=== PATIENT | male | born 1980 | race Caucasian/White ===

== ENCOUNTER 2023-10-09 11:22 | Emergency (ER) | payer OTHER ==
[~2023-10-09] VITALS: Ht 177.8 cm; Wt 120.2 kg
[2023-10-09 11:35] VITALS: TEMP 98.8
[2023-10-09] MEDS: DOXYCYCLINE HYCLATE (100 MG) 100 MG TABLET PO ONE (12:16)
[2023-10-09] MEDS: KETOROLAC TROMETHAMINE 15 MG/ML VIAL IM ONE (12:16)
[2023-10-09 12:17] LABS: APPEARANCE,URINE Clear (CLEAR); BILIRUBIN,URINE Negative (NEGATIVE); BLOOD, URINE Negative Ery/uL (NEGATIVE); COLOR,URINE YELLOW (YELLOW); KETONES,URINE Negative (NEGATIVE); LEUKOCYTE ESTERASE ,URINE Negative (NEGATIVE); NITRITE, URINE Negative (NEGATIVE); PH,URINE 5.5 (5.0-8.0); PROTEIN,URINE Negative (NEGATIVE); UGLUCOSE Negative (NEGATIVE)
[2023-10-09] MEDS ORDERED: DOXYCYCLINE HYCLATE (100 MG) 100 MG TABLET ONE (12:17)
[2023-10-09] MEDS ORDERED: KETOROLAC TROMETHAMINE 15 MG/ML VIAL ONE (12:17)
[2023-10-09 12:27] LABS: RBC,URINE 0-2 /HPF (0-2)
[2023-10-09 12:28] LABS: ADD URINE CULTURE YES; BACTERIA,URINE Few /HPF (None Seen); SQUAMOUS EPITHELIAL CELL,UR Few /HPF (None Seen)
[2023-10-09] MEDS ORDERED: CEFTRIAXONE 500 MG VIAL IV ONE (12:30)
[2023-10-09] MEDS: CEFTRIAXONE 1 G VIAL IM ONE (12:56)
[2023-10-09] MEDS ORDERED: CEFTRIAXONE 1 G in IV D5W 50 ML IV ONE (13:00)
[2023-10-09] MEDS ORDERED: DOXY-326 PO (14:23)
[2023-10-09 14:46] VITALS: BP 138/88; O2SAT 100
[2023-10-10 17:07] LABS: CHLAMYDIA TRACHOMATIS NAA Positive (Negative); NEISSERIA GONORRHOEAE NAA Negative (Negative)
== END 2023-10-09 14:48 | disposition home or self-care (01) ==
LOC: ER 11:28
DX: N45.3 Epididymo-orchitis (principal)
CPT/HCPCS: 99285; 96372 ×2; 76870; 87086; 81001; 87491; 87591; J1885; J0696; J7060